=== PATIENT | female | born 2005 | race Hispanic/Latino ===

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

== ENCOUNTER 2023-07-21 17:11 | Emergency (ER) | payer OTHER, SELFPAY | END 2023-07-21 18:31 | disposition left against medical advice (07) | LOC: CSHERS 17:11 | DX: Z53.21 Procedure and treatment not carried out due to patient leaving prior to being seen by health care provider (principal) ==

== ENCOUNTER 2023-09-14 22:59 | Emergency (ER) | payer SELFPAY ==
[2023-09-15 00:45] LABS: SARS-CoV-2 NAA Rapid Test Not Detected (NotDetected)
[2023-09-15] MEDS ORDERED: Ondansetron ODT 4 MG TAB ONE (00:45)
[2023-09-15] MEDS ORDERED: Ketorolac Tromethamine 30 MG (1 mL) VIAL ONE (00:45)
== END 2023-09-15 01:35 | disposition home or self-care (01) ==
LOC: CSHERS 22:59
DX: J10.1 Influenza due to other identified influenza virus with other respiratory manifestations (principal)
CPT/HCPCS: 71045; 96372; J1885; Q0162